=== PATIENT | male | born 1955 | race Caucasian/White ===

== ENCOUNTER 2020-12-31 03:57 | Emergency (ER) | payer OTHER ==
[~2020-12-31] VITALS: Ht 175.3 cm; Wt 63.5 kg
[2020-12-31] MEDS ORDERED: CEPHALEXIN500 MG PO (04:12)
[2020-12-31 04:32] VITALS: BP 102/49
== END 2020-12-31 04:33 | disposition home or self-care (01) ==
LOC: ER 03:57
DX: S01.111A Laceration without foreign body of right eyelid and periocular area, initial encounter (principal); W18.39XA Other fall on same level, initial encounter; Y93.89 Activity, other specified; Y92.89 Other specified places as the place of occurrence of the external cause; Y99.8 Other external cause status

== ENCOUNTER 2021-01-03 15:31 | Emergency (ER) | payer OTHER ==
[~2021-01-03] VITALS: Ht 175.3 cm; Wt 65.8 kg
[~2021-01-03 15:31] MED LIST: CEPHALEXIN500 MG PO
[2021-01-03 16:01] LABS: HEMOGLOBIN 6.8 gm/dL (14.0-18.0)
[2021-01-03 16:04] LABS: MCHC 34.2 g/dL (28.0-37.0); MCV 87.7 fL (80.0-100.0); PLATELET COUNT 554 thou/uL (150-400); RBC 2.27 mil/uL (4.50-6.00); RDW 14.1 % (10.5-14.5); WBC 23.5 thou/uL (4.0-11.0)
[2021-01-03 16:06] LABS: HEMATOCRIT 19.9 % (42.0-52.0)
[2021-01-03 16:11] LABS: ALBUMIN 3.6 g/dL (3.4-5.0); CALCIUM 8.9 mg/dL (8.5-10.1); CREATININE 2.1 mg/dL (0.7-1.3); TOTAL BILIRUBIN 0.6 mg/dL (0.2-1.0); TOTAL PROTEIN 7.2 g/dL (6.4-8.2)
[2021-01-03 16:32] LABS: ABSOLUTE NEUTROPHILS 17.9 thou/uL (1.4-8.2); POLYCHROMASIA SLIGHT
[2021-01-03 17:58] VITALS: BP 160/70
[2021-01-03 18:45] VITALS: BP 146/75
== END 2021-01-03 18:45 | disposition short-term general hospital (02) ==
LOC: ER 15:31
PROVIDERS: Nurse Practitioner Family
DX: S22.42XA Multiple fractures of ribs, left side, initial encounter for closed fracture (principal); Z20.822 Contact with and (suspected) exposure to COVID-19; S01.81XA Laceration without foreign body of other part of head, initial encounter; S27.0XXA Traumatic pneumothorax, initial encounter; N17.9 Acute kidney failure, unspecified; E87.1 Hypo-osmolality and hyponatremia; D72.829 Elevated white blood cell count, unspecified; D64.9 Anemia, unspecified; K92.2 Gastrointestinal hemorrhage, unspecified; E87.2 Acidosis; E87.6 Hypokalemia; I10 Essential (primary) hypertension; E78.00 Pure hypercholesterolemia, unspecified; W18.30XA Fall on same level, unspecified, initial encounter; Y93.89 Activity, other specified; Y92.89 Other specified places as the place of occurrence of the external cause; Y99.9 Unspecified external cause status